=== PATIENT | female | born 1985 | race Caucasian/White ===

== ENCOUNTER 2017-06-05 14:12 | Outpatient (CLI) ==
--- NOTE | 2017-06-05 14:46 | DI ---
EXAM: Three views of the lumbar spine. History: Lower back pain. Findings: No acute fracture or subluxation of the lumbar spine. Mild disc space narrowing at L5-S1. Mild facet hypertrophy at L5-S1. Scattered colonic stool. Impression: 1. No acute osseous abnormality of the lumbar spine. 2. Mild degenerative disc disease at L5-S1.
== END 2017-06-05 14:13 | disposition home or self-care (01) ==
LOC: RAD 14:12
PROVIDERS: ATTEND Internal Medicine
DX: M54.5 Low back pain (principal)

== ENCOUNTER 2018-02-23 10:02 | Outpatient (CLI) | END 2018-02-23 10:03 | disposition home or self-care (01) | LOC: LAB 10:02 | PROVIDERS: ATTEND Internal Medicine | DX: R31.9 Hematuria, unspecified (principal) | CPT/HCPCS: 81001; 87086 ==